=== PATIENT | female | born 1955 | race Caucasian/White ===

== ENCOUNTER → 2017-09-04 | Outpatient (CLI) | payer BC ==
[~2017-09-04] VITALS: Ht 152.4 cm; Wt 64.4 kg
[~2017-09-04] MED LIST: CENTRUM SILVER1 EAC4 PO; CO Q10200 MG PO; KRILL OIL 5001 EAC1 PO; MAGNESIUM250 MG PO; NEXIUM40 MG PO; VITAMIN B122500 MCG PO
== END | disposition home or self-care (01) ==
LOC: AMB 06:58
DX: Z12.11 Encounter for screening for malignant neoplasm of colon (principal); R12 Heartburn; D12.2 Benign neoplasm of ascending colon; D12.3 Benign neoplasm of transverse colon; K22.70 Barrett's esophagus without dysplasia
CPT/HCPCS: 88305; J3010